=== PATIENT | female | born 1975 | race Caucasian/White ===

== ENCOUNTER 2025-05-11 05:45 | Emergency (ER) | payer OTHER, SELFPAY ==
[2025-05-11 05:46] VITALS: BP 172/86; PULSE 77; RESP 20; TEMP 36.4; O2SAT 100; BMI 24.3
--- NOTE | 2025-05-11 06:01 | CT_ITS ---
PROCEDURE: ABDOMEN/PELVIS W IV CONT ONLY 05/11/2025 REASON FOR EXAM: ABD PAIN / ? PELVIC MASS TECHNIQUE: ABDOMEN/PELVIS W IV CONT ONLY Coronal and Sagittal reconstruction series were provided. CONTRAST: Isovue 370 VOLUME: 100 mL One or more dose reduction techniques were used (e.g., Automated exposure control, adjustment of the mA and/or kV according to patient size, use of iterative reconstruction technique. RADIATION DOSE SUMMARY: CTDlvol: 22.62 mGy DLP: 494.29 mGycm COMPARISON: None FINDINGS: Lung bases: Clear Liver: Normal size. No mass. Gallbladder: Unremarkable Spleen: Normal size. Pancreas: Normal size without evidence of mass surrounding inflammation or ductal dilation. Adrenals: Unremarkable Kidneys: Normal renal sizes. No hydronephrosis. Bladder: Unremarkable Reproductive Organs: The uterus shows diffuse enlargement around the region of the lower uterine segment and cervix suggesting a fibroid but an underlying lesion can not be excluded. Recommend further evaluation with a dedicated pelvic ultrasound. There is fluid within the endometrial canal. There are dilated serpiginous vessels around the periphery of the uterus suggesting pelvic congestion. No suspicious enlarged cystic mass or free fluid in the dependent pelvis is noted. Bowel: Nondistended fluid-filled bowel loops are noted suggesting diffuse enteritis. Appendix: Normal appendix seen on coronal recon images 39 through 45 Lymph nodes: No suspicious mesenteric or retroperitoneal lymph nodes Vasculature: Peripheral calcifications in the abdominal aorta without aneurysm Peritoneum / Retroperitoneum: No free fluid or air Bones: Bony structures are unremarkable CT/Abdomen/Pelvis W IV Cont ONLY IMPRESSION: There is enlargement of the lower uterine segment and cervical region which may either be due to a fibroid or mass lesion. Further evaluation of this is needed with MRI of the pelvis or dedicated pelvic ultrasound. Mildly dilated serpiginous vessels are noted around the periphery of the uterus consistent with pelvic congestion. There is fluid within the endometrium No suspicious adnexal mass or free fluid in the pelvis No suspicious solid organ abnormality No free intraperitoneal fluid, air, or suspicious adenopathy, normal appendix v isualized Nondistended fluid-filled bowel loops suggest diffuse enteritis Reading Location: [facility]
[2025-05-11] MEDS: 0.9% Normal Saline (1000mL) 1,000 ML 999 ML IV (06:10)
[2025-05-11] MEDS: Lorazepam 2 MG/ML WCH Syringe 1 MG IV (06:10)
[2025-05-11] MEDS: Ketorolac 30 MG/ML Syringe IV (06:10)
[2025-05-11 06:12] LABS: Hematocrit 42.4 % (37-47); Hemoglobin 14.7 g/dL (12.0-15.0); Immature Granulocytes Count 0.060 X10^3/uL (0.0-0.0); Mean Corp Hgb Conc 34.7 g/dL (32-36); Mean Corpuscular Volume 84.8 fL (81-99); Mean Platelet Vol. 9.8 fl (6.2-12.0); NRBC Flagged by Analyzer 0 % (0-5); Platelet Count 334 K/mm3 (150-450); RBC Distribution Width CV 13.2 % (11.6-14.6); RBC Distribution Width SD 40.9 fl (35.1-43.9); Red Blood Count 5.00 M/mm3 (4.2-5.4); White Blood Count 16.4 K/mm3 (4.4-11.0)
--- NOTE | 2025-05-11 06:13 | EX.ED.DYSGE1 ---
HPI History of Present Illness Chief Complaint: Abd Pain Informant: patient and spouse/S.O. Narrative Narrative: Patient is a 50-year-old female with past medical history of anxiety. She presents today with multiple complaints. She states she has struggled with sciatica but over the past 3 to 4 weeks she has felt that the pain in her back/leg is worse. She states that she believes she went through menopause roughly 3 years ago as she stopped having a menstrual cycle. However in the last 3 to 4 weeks she began having lower abdominal pain and cramping. She states there was associated vaginal bleeding with this. She states as time has passed she has been having increasing pain and pressure in the lower abdominal region as well as increased bleeding. She states that she does take ibuprofen daily but denies any history of bleeding disorder or blood thinner use. She states there is no vaginal discharge or concern for STD. Secondary to the persistent and now worsening symptoms she presents for evaluation Regarding her back pain she denies any loss of bowel or bladder control or IV drug use. She states there is been no recent trauma or excessive activity either [facility] Medical History Anxiety Home Medications ?Medication ?Instructions ?Recorded ?Last Taken ?Type NK 05/11/25 Unknown History Allergy/AdvReac Type Severity Reaction Status Date / Time No Known Allergies Allergy Verified 05/11/25 05:49 Social History Smoking Status: Current every day smoker tobacco type: cigarettes ROS ROS ED Constitutional Constitutional ED: Denies chills or fever(s) ENT ENT ED: Denies sore throat Cardiovascular Cardiovascular: Denies chest pain Respiratory/Chest Respiratory/Chest: Denies cough or dyspnea Gastrointestinal Gastrointestinal: Reports abdominal pain; Denies constipation, diarrhea, melena, nausea or vomiting Genitourinary Genitourinary ED: Reports other Details: Positive vaginal bleeding ; Denies dysuria or urinary frequency Musculoskeletal Musculoskeletal: Reports back pain; Denies myalgias Integumentary Denies rash Neurologic Neurologic: Denies headache(s), paresthesias or weakness Psychiatric Psychiatric: Reports anxiety Hematologic/Lymphatic Hematologic/Lymphatic: Denies easy bleeding or easy bruising EXAM Physical Exam Const Vital Signs: 05/11/25 05:46 05/11/25 06:31 Temperature 97.6 F L Temperature Source Oral Pulse Rate 77 Respiratory Rate 20 H Blood Pressure 172/86 H 131/75 H Blood Pressure Mean 114 93 Pulse Ox 100 Positive well nourished and well developed General Appearance ED: well developed; Negative for pallor HEENT HEENT Narrative: Normocephalic atraumatic Eyes PERRL and EOMs intact bilaterally General Eye ED: Negative for pale conjunctiva or scleral icterus Neck supple Neck Narrative: No nuchal rigidity or meningeal signs Resp normal respiratory effort and clear to auscultation bilaterally Cardio regular rate and regular rhythm Rate: other Other Details: Heart is regular rate and rhythm without murmurs rubs or gallops Radial and carotid pulses are equal and symmetric GI non-distended and no masses GI Narrative: Abdomen is soft and nondistended with normal active bowel sounds. No organomegaly noted There is pain with palpation in the lower mid/suprapubic region of the abdomen No voluntary guarding or rigidity or pulsatile mass. No peritoneal signs Auscultation: normoactive bowel sounds Palpation: soft Back/Spine no CVA tenderness Back/Spine Narrative: No bony deformity or step-off of the thoracic or lumbar spine no midline tenderness to palpation No saddle anesthesia. Negative straight leg raise. No clonus or Babinski. Patellar reflexes are plus 2 out of 4 bilaterally No overlying soft tissue changes to suggest trauma or infection Extremity normal to inspection Neuro oriented x3, CN's II-XII intact bilaterally and no sensory deficits noted Sensorium / Orientation: alert Motor Exam: strength 5/5 throughout Psych Mood & Affect: anxious Skin no rashes or lesions noted and no wounds General Skin Exam: Negative for jaundice or pallor MDM MDM MDM Narrative Medical decision making narrative: Patient arrived to the ER hypertensive but was visibly anxious and therefore this physiologic response is to be expected. Otherwise vital signs are stable. She reported pain in the lower mid abdomen/suprapubic region going on for 3 to 4 weeks coupled with increasing vaginal bleeding. Moreover she states she believes she went through menopause 3 years ago as she did not have a menstrual cycle for the past 3 years. With the patient complaining of lower abdominal pain and now vaginal bleeding who is postmenopausal there is high concern for some type of pelvic mass. In order to check for this I will perform a CT scan with IV contrast. In order to ensure she does not have acute blood loss anemia thrombocytopenia or elevation to her bleeding times basic blood work will be obtained as well. In order to ensure this is not some type of abnormal complication a serum test will be added as well. Lab work revealed a stable H&H as well as bleeding times and no signs of thrombocytopenia. Lactic acid is normal as well going against acute ischemia or secondary infection. Liver enzymes are normal going against a gallbladder issue and lipase is normal going against pancreatitis. test is also negative going against a typical complication. The patient CT scan showed changes in the uterus concerning for pelvic mass versus fibroid and recommends either a pelvic MRI or pelvic ultrasound. Therefore at this time I will obtain a pelvic ultrasound for a better visualization of the abnormality noted on CT scan. As the pelvic ultrasound is still pending I will sign the patient out to the day physician Dr. Akers. Whether the ultrasound confirms fibroid or does suggest more of a potential mass/cancer as the patient's vitals are stable and labs within normal limits there will be no need for admission and she can follow-up as an outpatient. History & Record Review Discussion w/independent historian: Patient Lab Data Labs: Laboratory Results - last 24 hr 05/11/25 05/11/25 05:50 06:09 WBC 16.4 H RBC 5.00 Hgb 14.7 Hct 42.4 MCV 84.8 MCH 29.4 MCHC 34.7 RDW Std Deviation 40.9 RDW Coeff of Prabhakar 13.2 Plt Count 334 MPV 9.8 Immature Gran % (Auto) 0.400 Neut % (Auto) 80.4 H Lymph % (Auto) 12.5 L [place] % (Auto) 5.9 Eos % (Auto) 0.2 Baso % (Auto) 0.6 Absolute Neuts (auto) 13.2 H Absolute Lymphs (auto) 2.05 Nucleated RBC % 0 PT 12.9 INR 1.0 APTT 27.9 Sodium 134 Potassium 3.9 Chloride 101 Carbon Dioxide 19.2 L Anion Gap 14 BUN 16 Creatinine 1.28 H Estim Creat Clear Calc 44.51 L Est GFR (MDRD) Non-Af 51 L BUN/Creatinine Ratio 12.8 Glucose 191 H Lactic Acid 1.2 Calcium 10.0 Total Bilirubin 0.73 Direct Bilirubin 0.30 AST 25 ALT 18 Alkaline Phosphatase 126 H Total Protein 8.4 Albumin 4.3 Globulin 4.1 Lipase 30 Serum , Qual NEGATIVE Radiography Diagnostic Testing: Clinical Impression(s) from Imaging Studies Abdomen/Pelvis CT 05/11/25 06:01 IMPRESSION: There is enlargement of the lower uterine segment and cervical region which may either be due to a fibroid or mass lesion. Further evaluation of this is needed with MRI of the pelvis or dedicated pelvic ultrasound. Mildly dilated serpiginous vessels are noted around the periphery of the uterus consistent with pelvic congestion. There is fluid within the endometrium No suspicious adnexal mass or free fluid in the pelvis No suspicious solid organ abnormality No free intraperitoneal fluid, air, or suspicious adenopathy, normal appendix visualized Nondistended fluid-filled bowel loops suggest diffuse enteritis Reading Location: [facility] Discharge Plan Triage Chief Complaint: Abd Pain ED Provider: Forrest Spraks Dx/Rx/DC Orders Clinical Impression: Pelvic mass, Postmenopausal vaginal bleeding, Anxiety Prescriptions: No Action NK Primary Care Provider: Care Physician,No Primary Referrals: Care Physician,No Primary [Primary Care Provider] - Print Language: Bulgarian
[2025-05-11 06:22] LABS: Prothrombin Time (Protime)PT. 12.9 SECONDS (11.7-14.9)
[2025-05-11 06:23] LABS: Partial Thromboplast Time 27.9 Seconds (24.1-36.2)
[2025-05-11 06:26] LABS: AST(SGOT) 25 U/L (<=31); Alanine Aminotransfer ALT/SGPT 18 U/L (<=34); Albumin, Serum 4.3 g/dL (3.5-5.0); Alkaline Phosphatase 126 U/L (35-104); Anion Gap 14 (5-15); BUN 16 mg/dL (4-19); BUN/Creat Ratio 12.8 RATIO (10-20); Bilirubin, Direct 0.30 mg/dL (0.00-0.30); Calcium,Total 10.0 mg/dL (7.6-11.0); Carbon Dioxide 19.2 mmol/L (21.0-32.0); Chloride 101 mmol/L (98-108); Estimated Creatinine Clearance 44.51 ml/min (50-250); Globulin 4.1 g/dL (2.2-4.2); Glucose 191 mg/dL (70-99); Lipase 30 U/L (13-75); Potassium 3.9 mmol/L (3.3-5.1)
[2025-05-11 06:31] VITALS: BP 131/75
[2025-05-11 06:33] LABS: Internal QC Validated? YES +Cl - CLEAR BKGD; Pregnancy, Serum, hCG Quali. NEGATIVE Negative; Record Kit Lot#, Serum Preg. 0000947241
--- NOTE | 2025-05-11 07:25 | US_ITS ---
PROCEDURE: PELVIC (NON ) 05/11/2025 REASON FOR EXAM: PELVIC MASS VERSUS FIBROID TECHNIQUE: PELVIC (NON ) COMPARISON: CT scan May 11, 2025 FINDINGS: Uterus: The uterus is anteverted measuring 11.3 x 5.5 x 3.1 cm. At the lower uterine segment and also involving the entire cervix is a isoechoic solid mass measuring 6.2 x 5.5 x 4.0 cm. There is not marked distention of the uterine cavity; scant fluid is present in the uterine cavity. Endometrium: Normal in appearance measuring 5 mm. Right ovary: 2.6 x 1.5 x 1.1 cm. No worrisome mass seen. Color and spectral Doppler flow is present. Left ovary: 2.3 x 1.6 x 1.1 cm. No worrisome mass seen. Color and spectral Doppler flow is present. Other: Small volume free fluid in the cul-de-sac US/Pelvic (Non ) IMPRESSION: Mass at the distal portion lower uterine segment and involving the cervix. Fav or this represents a fibroid. However, out of an abundance of caution, recommend consultation with obstetrician/gynecologist and direct inspection on a nonemergent basis. While not favored, cervical malignancy is in the differential. Of note, review of recent CT shows no lymph adenopathy, and the surrounding soft tissues are unremarkable. Reading Location: [id number]
[2025-05-11 08:00] VITALS: BP 145/69; PULSE 67; O2SAT 100
[2025-05-11 10:21] VITALS: BP 127/76; PULSE 69; RESP 16; TEMP 36.6; O2SAT 100
== END 2025-05-11 10:22 | disposition home or self-care (01) ==
PROVIDERS: Emergency Provider Emergency Medicine; Visit Provider Emergency Medicine
DX: N95.0 Postmenopausal bleeding (principal); F41.9 Anxiety disorder, unspecified; M54.9 Dorsalgia, unspecified; F17.210 Nicotine dependence, cigarettes, uncomplicated; R19.00 Intra-abdominal and pelvic swelling, mass and lump, unspecified site
CPT/HCPCS: 74177; 76856; 80048; 80076; 83605; 83690; 84703; 85025; 85610; 85730; 96361; 96374; 96375; 99283; Q9967; A4216